=== PATIENT | male | born 1950 | race African-American/Black ===

== ENCOUNTER 2023-11-25 14:33 | Inpatient (IN) | payer OTHER ==
[2023-11-25 16:22] VITALS: BMI 26.1
[2023-11-25] MEDS ORDERED: POLYETHYLENE GLYCOL (HEALTHYLAX) 3350 17 GM PACKET PO PRN (18:31)
[2023-11-25] MEDS ORDERED: NICOTINE POLACRILEX 2 MG LOZENGE BC PRN (18:31)
[2023-11-25] MEDS ORDERED: LOPERAMIDE HCL 2 MG CAPSULE PO PRN (18:31)
[2023-11-25] MEDS ORDERED: BENZOCAINE/MENTHOL (CHLORASEPTIC ) LOZENGE MM PRN (18:31)
[2023-11-25] MEDS ORDERED: BENZONATATE 200 MG CAPSULE PO PRN (18:31)
[2023-11-25] MEDS ORDERED: guaiFENesin 600 MG TABLET.ER (FP) PO PRN (18:31)
[2023-11-25] MEDS ORDERED: P-EPHED 60MG/TRIPROLIDI 2.5MG TABLET PO PRN (18:31)
[2023-11-25] MEDS: MELATONIN 5 MG TABLETS PO SCH (21:10)
[2023-11-25] MEDS: THIAMINE 100 MG TABLET PO SCH (21:11)
[2023-11-25] MEDS ORDERED: TUBERCULIN PPD 5 TU/0.1ML SYRINGE (IN PATIENT USE ONLY) ID ONE (22:32)
[2023-11-25] MEDS: GABAPENTIN 400 MG CAPSULE PO ONE (22:39)
[2023-11-26] MEDS: metFORMIN HCL 500 MG TABLET (FP) PO SCH (06:07)
[2023-11-26] MEDS: TAMSULOSIN HCL 0.4 MG CAP PO SCH (09:30)
[2023-11-26] MEDS: PRENATAL VITAMINS W/ FOLIC ACID TABLET (FP) PO SCH (10:28)
[2023-11-26] MEDS: ASPIRIN 81 MG CHEWABLE TABLETS PO SCH (10:28)
[2023-11-26] MEDS: FERROUS SO4 325 MG TABLET (FP) PO SCH (10:30)
[2023-11-26] MEDS: CHOLECALCIFEROL (VIT D3) 1,000 UNIT (25 MCG) TABLET PO SCH (10:31)
[2023-11-26 11:47] LABS: POTASSIUM 4.3 mmol/L (3.5-5.1)
[2023-11-26 11:53] LABS: HEMATOCRIT 34.8 % (35.4-49); HEMOGLOBIN 11.4 GM/dL (11.7-16.9); MCH 30.6 pg (25.7-33.7); MCHC 32.9 g/dl (32.0-35.9); MEAN CELL VOLUME 93.1 fl (80-96); MEAN PLT VOLUME 8.2 fl (7.5-11.1); PLATELET COUNT 350 10^3/uL (134-434); RBC 3.74 M/mm3 (4.00-5.60); RDW 19.5 % (11.9-15.9); WHITE BLOOD COUNT 5.2 K/mm3 (4.0-10.0)
[2023-11-26 11:58] LABS: CALCIUM 8.8 mg/dL (8.5-10.1)
[2023-11-26 11:59] LABS: ALBUMIN 2.9 g/dl (3.4-5.0); BLOOD UREA NITROGEN 13.9 mg/dL (7-18)
[2023-11-26 12:03] LABS: BILIRUBIN,TOTAL 0.1 mg/dL (0.2-1); TOT PROT 6.1 g/dl (6.4-8.2)
[2023-11-26] MEDS: ENALAPRIL MALEATE 2.5 MG TABLET PO SCH (12:35)
[2023-11-26] MEDS: ATORVASTATIN CA 10 MG TABLET (FP) PO SCH (21:50)
[2023-11-27] MEDS: ALBUTEROL SO4 HFA INHALER IH PRN (06:39)
[2023-11-27 09:58] LABS: INR 0.96 (0.83-1.09); PROTHROMBIN TIME (PATIENT) 10.9 SEC (9.7-13.0)
[2023-11-27] MEDS: MAGNESIUM HYDROX 2400MG/30ML ORAL SUSPENSION 30 ML CUP PO PRN (15:38)
[2023-11-28 11:37] LABS: PH,URINE 7.5 (5.0-8.0); URINE APPEARANCE CLEAR; URINE BILIRUBIN NEGATIVE (NEGATIVE); URINE COLOR YELLOW; URINE GLUCOSE (UA) NEGATIVE (NEGATIVE); URINE KETONE NEGATIVE (NEGATIVE); URINE LEUK ESTERASE NEGATIVE (NEGATIVE); URINE NITRITE NEGATIVE (NEGATIVE); URINE PROTEIN NEGATIVE (NEGATIVE); URINE UROBILINOGEN 0.2 mg/dL (0.2-1.0)
[2023-11-29] MEDS: IBUPROFEN 600 MG TABLET (FP) PO PRN (19:49)
[2023-12-02] MEDS: LIRAGLUTIDE 0.6 MG/0.1 ML PEN.INJCTR SQ SCH (15:25)
[2023-12-03] MEDS: ACETAMINOPHEN 325 MG TABLET (FP) PO PRN (06:28)
[2023-12-04] MEDS: IBUPROFEN 400 MG TABLET (FP) PO PRN (21:17)
[2023-12-06] MEDS: ALBUTEROL SO4 2.5/IPRATROPIUM 0.5 INH SOL 3 ML VIAL.NEB. NEB PRN (18:49)
[2023-12-09] MEDS: MAG HYDROX/AL HYDROX/SIMETH 30 ML UNIT-DOSE CUP PO PRN (14:03)
[2023-12-10 07:12] VITALS: RESP 18
[2023-12-11 06:44] VITALS: TEMP 97.7
[2023-12-11 09:29] VITALS: BP 138/56; PULSE 78
== END 2023-12-11 09:40 | disposition home or self-care (01) | DRG 895 ==
LOC: YASAS 14:33 → Y3NR 18:37 → Y5N 11-26 13:26
PROVIDERS: ADMIT Allergy & Immunology; ATTEND Psychiatry & Neurology Pain Medicine
PROC: HZ42ZZZ Group Counseling for Substance Abuse Treatment, Cognitive-Behavioral (ICD-10-PCS; principal; 2023-11-25)
DX: F14.20 Cocaine dependence, uncomplicated (principal); F10.20 Alcohol dependence, uncomplicated; F17.210 Nicotine dependence, cigarettes, uncomplicated; D64.9 Anemia, unspecified; I10 Essential (primary) hypertension; E78.5 Hyperlipidemia, unspecified; E11.9 Type 2 diabetes mellitus without complications; Z79.84 Long term (current) use of oral hypoglycemic drugs; J44.9 Chronic obstructive pulmonary disease, unspecified; M54.50 Low back pain, unspecified; G89.29 Other chronic pain; Z86.11 Personal history of tuberculosis; Z99.89 Dependence on other enabling machines and devices
CPT/HCPCS: 36415; 71045-TC-FY; 80053; 80305; 81003; 82140; 82652; 82962; 83735; 85027; 85610; 86780; 87811; 93005; 93010; 94640

== ENCOUNTER 2025-02-23 12:59 | Inpatient (IN) | payer OTHER ==
[2025-02-23 13:47] VITALS: BMI 26.4
[2025-02-23] MEDS ORDERED: MAGNESIUM HYDROX 2400MG/30ML ORAL SUSPENSION 30 ML CUP PO PRN (14:21)
[2025-02-23] MEDS ORDERED: NICOTINE POLACRILEX 2 MG LOZENGE BC PRN (14:21)
[2025-02-23] MEDS ORDERED: NICOTINE POLACRILEX 2 MG GUM BUC PRN (14:21)
[2025-02-23] MEDS ORDERED: guaiFENesin 600 MG TABLET.ER (FP) PO PRN (14:21)
[2025-02-23] MEDS ORDERED: BENZONATATE 200 MG CAPSULE PO PRN (14:21)
[2025-02-23] MEDS ORDERED: LOPERAMIDE HCL 2 MG CAPSULE PO PRN (14:21)
[2025-02-23] MEDS ORDERED: POLYETHYLENE GLYCOL (HEALTHYLAX) 3350 17 GM PACKET PO PRN (14:21)
[2025-02-23] MEDS ORDERED: NALOXONE (NARCAN) HCL 4 MG/0.1 ML SPRAY NS PRN (14:21)
[2025-02-23] MEDS ORDERED: MAG HYDROX/AL HYDROX/SIMETH 30 ML UNIT-DOSE CUP PO PRN (14:21)
[2025-02-23] MEDS: ATORVASTATIN CA 10 MG TABLET (FP) PO SCH (21:16)
[2025-02-23] MEDS: THIAMINE 100 MG TABLET PO SCH (21:16)
[2025-02-23] MEDS: MELATONIN 5 MG TABLETS PO SCH (21:16)
[2025-02-23] MEDS: IBUPROFEN 600 MG TABLET (FP) PO PRN (21:16)
[2025-02-24] MEDS: metFORMIN HCL 500 MG TABLET (FP) PO SCH (08:00)
[2025-02-24] MEDS: TAMSULOSIN HCL 0.4 MG CAP PO SCH (08:06)
[2025-02-24] MEDS: ASPIRIN 81 MG CHEWABLE TABLETS PO SCH (09:12)
[2025-02-24] MEDS: ENALAPRIL MALEATE 2.5 MG TABLET PO SCH (09:12)
[2025-02-24] MEDS: PRENATAL VITAMINS W/ FOLIC ACID TABLET (FP) PO SCH (09:12)
[2025-02-24 10:35] LABS: MCHC 30.6 g/dl (32.3-36.5); MEAN CELL VOLUME 93.7 fl (79.0-92.2); MEAN PLT VOLUME 9.3 fl (9.4-12.4); RDW 14.1 % (12.2-16.6)
[2025-02-24 10:52] LABS: CO2 28 mmol/L (21-32); GLUCOSE,RANDOM 128 mg/dL (74-106)
[2025-02-24 10:55] LABS: CREATININE 0.9 mg/dL (0.55-1.3); SGOT/AST 10 U/L (15-37); SGPT/ALT 18 U/L (13-61)
[2025-02-24 10:57] LABS: TOT PROT 6.3 g/dl (6.4-8.2)
[2025-02-24 10:58] LABS: ALK PHOS 124 U/L (45-117)
[2025-02-25 04:25] LABS: SYPHILIS W/ RPR CONF NON-REACTIVE (NONREACTIVE)
[2025-02-25 04:57] LABS: HCV DIAGNOSTIC IN-HOUSE W/RFLX REACTIVE (NONREACTIVE)
[2025-02-25] MEDS: ALBUTEROL SO4 HFA INHALER IH PRN (06:31)
[2025-02-25 10:07] LABS: URINE APPEARANCE CLEAR; URINE BILIRUBIN NEGATIVE (NEGATIVE); URINE COLOR YELLOW; URINE GLUCOSE (UA) NEGATIVE (NEGATIVE); URINE KETONE NEGATIVE (NEGATIVE); URINE LEUK ESTERASE NEGATIVE (NEGATIVE); URINE NITRITE NEGATIVE (NEGATIVE); URINE PROTEIN NEGATIVE (NEGATIVE); URINE UROBILINOGEN 0.2 mg/dL (0.2-1.0)
[2025-02-26] MEDS: TAMSULOSIN HCL 0.4 MG CAP PO SCH (06:24)
[2025-02-27] MEDS: FERROUS SO4 325 MG TABLET (FP) PO SCH (09:29)
[2025-02-28] MEDS: ACETAMINOPHEN 325 MG TABLET (FP) PO PRN (21:12)
[2025-03-01] MEDS: TAMSULOSIN HCL 0.4 MG CAP PO SCH (07:29)
[2025-03-02] MEDS: TAMSULOSIN HCL 0.4 MG CAP PO SCH (06:21)
[2025-03-02] MEDS: LIDOCAINE 5% TOPICAL PATCH TP SCH (17:28)
[2025-03-02] MEDS: ACETAMINOPHEN 325 MG TABLET (FP) PO PRN (21:08)
[2025-03-03] MEDS: LIDOCAINE PATCH REMOVAL MC SCH (06:44)
[2025-03-04] MEDS: IBUPROFEN 400 MG TABLET (FP) PO PRN (18:02)
[2025-03-08] MEDS: BENZOCAINE/MENTHOL (CHLORASEPTIC ) LOZENGE MM PRN (03:24)
[2025-03-10 06:34] VITALS: RESP 18; TEMP 97.5
[2025-03-10 08:57] VITALS: BP 101/50; PULSE 66
== END 2025-03-10 10:20 | disposition home or self-care (01) | DRG 895 ==
LOC: YASAS 12:59 → Y3NR 17:41 → Y5N 02-24 14:44
PROVIDERS: ADMIT Neuromusculoskeletal Medicine & OMM; ATTEND Psychiatry & Neurology Pain Medicine
PROC: HZ42ZZZ Group Counseling for Substance Abuse Treatment, Cognitive-Behavioral (ICD-10-PCS; principal; 2025-02-23)
DX: F14.20 Cocaine dependence, uncomplicated (principal); F10.20 Alcohol dependence, uncomplicated; F12.20 Cannabis dependence, uncomplicated; F17.210 Nicotine dependence, cigarettes, uncomplicated; F41.9 Anxiety disorder, unspecified; D64.9 Anemia, unspecified; E78.5 Hyperlipidemia, unspecified; I10 Essential (primary) hypertension; E11.9 Type 2 diabetes mellitus without complications; Z79.84 Long term (current) use of oral hypoglycemic drugs; J44.9 Chronic obstructive pulmonary disease, unspecified; M54.50 Low back pain, unspecified; G89.29 Other chronic pain; R76.8 Other specified abnormal immunological findings in serum; Z99.89 Dependence on other enabling machines and devices; Z86.11 Personal history of tuberculosis
CPT/HCPCS: 36415; 80053; 80305; 80307; 81003; 82962; 85027; 86780; 86803; 87522; 87637-QW; 87811; 93005; 93010